=== PATIENT | female | born 1980 | race Caucasian/White ===

== ENCOUNTER 2018-06-06 04:48 | Day surgery (SDC) | payer BC ==
[2018-05-31 14:34] VITALS: BMI 25.5
[2018-06-06] MEDS ORDERED: BUPIVACAINE HCL/PF 0.5% (5MG/ML) 10 ML VIAL ONE (08:16)
[2018-06-06] MEDS ORDERED: MIDAZOLAM HCL 2 MG/2 ML SINGLE DOSE VIAL ONE ×2 (08:18)
[2018-06-06] MEDS ORDERED: oxyCODONE HCL 5 MG TABLET PO PRN ×2 (08:30)
[2018-06-06] MEDS ORDERED: LACTATED RINGERS SOLUTION 1,000 ML IV SCH (08:30)
[2018-06-06] MEDS ORDERED: ONDANSETRON 4 MG/2 ML VIAL IVPUSH PRN (08:30)
--- NOTE | 2018-06-06 08:52 | HP ---
[facility] - Chief Complaint Chief Complaint: left elbow pain History of Present Illness: left elbow lateral epicondylitis History Source: Patient Limitations to Obtaining History: No Limitations - Past Medical History Allergies/Adverse Reactions: Allergies Allergy/AdvReac Type Severity Reaction Status Date / Time No Known Drug Allergies Allergy Verified 06/06/18 08:20 ...LMP: 05/22/18 - Current Medications Current Medications: Home Medications Medication Instructions Recorded Aripiprazole [Abilify -] 2 mg PO DAILY 05/31/18 Bupropion HCl [Wellbutrin Xl -] 150 mg PO DAILY 05/31/18 Ibuprofen 600 mg PO PRN 05/31/18 Multivitamin [One-Daily 1 each PO DAILY 05/31/18 Multi-Vitamin] Venlafaxine HCl ER [Effexor Xr -] 187.5 mg PO DAILY 05/31/18 [facility]ellite Physical Exam - Physical Examination Vital Signs: Vital Signs Period Temp Pulse Resp BP Sys/Crow Pulse Ox Last 24 Hr 98.0 F 84 20 103/63 98 General Appearance: Well Nourished ENT: Clear Lung: Clear to auscultation Heart: Regular rate & rhythm Breasts: Soft Abdomen: Soft Extremities: No edema [facility]ellite Impression/Plan - Impression/Plan Impression: left elbow lateral epicondylitis, tear of extensor tendon/ECRB Operative Procedure: left elbow lateral epicondylectomy, repair of ECRB tendon Date to be Performed: 06/06/18
[2018-06-06] MEDS ORDERED: ceFAZolin SODIUM 1 GM VIAL ONE (09:18)
[2018-06-06] MEDS ORDERED: PROPOFOL 20 ML ONE (09:18)
[2018-06-06] MEDS ORDERED: ceFAZolin SODIUM 1 GM VIAL IVPB ONE (09:31)
[2018-06-06] MEDS ORDERED: DEXAMETHASONE SOD PHOSPHATE 4 MG/1 ML VIAL ONE (09:45)
--- NOTE | 2018-06-06 10:37 | OP ---
Operative Note - Note: Operative Date: 06/06/18 Pre-Operative Diagnosis: left elbow lateral epicondylitis, torn ECRB Operation: left elbow lateral epicondylectomy, repair of ECRB tendon Post-Operative Diagnosis: Same as Pre-op Surgeon: Hilario Antony Senior Merchandiser: López Chambers Anesthesiologist/PIT WORKER POWER SHOVEL: Blanac Benoit Anesthesia: General, Local Specimens Removed: lateral epicondyle Estimated Blood Loss (mls): 0 Drains, Volume Out (mls): 0 Blood Volume Replaced (mls): 0 Fluid Volume Replaced (mls): 700 Operative Report Dictated: Yes
[2018-06-06 12:00] VITALS: TEMP 98
[2018-06-06 12:29] VITALS: PULSE 88
[2018-06-06 12:39] VITALS: BP 111/62
--- NOTE | 2018-06-06 13:47 | SPEC ---
DATE OF OPERATION: 06/06/2018 PREOPERATIVE DIAGNOSIS: Left elbow lateral epicondylitis and torn extensor carpi radialis brevis muscle tendon. POSTOPERATIVE DIAGNOSIS: Left elbow lateral epicondylitis and torn extensor carpi radialis brevis muscle tendon. PROCEDURE: Left elbow lateral epicondylectomy and repair of extensor carpi radialis brevis muscle tendon. SURGEON: Hilario Antony MD TELECOMMUNICATIONS ADMINISTRATOR: López Chambers MD ANESTHESIOLOGIST: Blanca Benoit MD ANESTHESIA: Left interscalene block with LMA anesthesia. DRAINS: None. COMPLICATIONS: None. SPECIMEN: Chronic inflammatory tissue, left elbow. BLOOD LOSS: None. BLOOD GIVEN: None. FLUID REPLACEMENT: PlasmaLyte, 700 mL. INDICATIONS: This patient is a 37-year-old female with a preoperative diagnosis of chronic left elbow lateral epicondylitis and torn ECRB tendon. After understanding the potential risks, complications, alternatives, and benefits of surgery versus nonsurgical treatment, the patient elected to undergo this procedure. DESCRIPTION OF PROCEDURE: The patient was brought into the operating room, peripheral IV placed, IV sedation given, a right intrascalene block performed, LMA anesthesia induced. Patient was given 1 gram of IV Ancef. A tourniquet applied to the arm. The upper extremity was prepped and draped in a sterile fashion, elevated and exsanguinated with an Esmarch bandage and tourniquet inflated to 250 mg of mercury. The entire case was done under 3.8 loupe magnification. A No. 15 scalpel blade was utilized to cut into the skin in a curvilinear fashion over the lateral epicondyle. Subcutaneous hemostasis was achieved with the bipolar cautery. Metzenbaum scissors were used to cut through the superficial fascia, exposing the lateral epicondyle, the origin of the ECRB. Under direct visualization three longitudinal slits were made within the periosteum of the lateral epicondyle as well as along the fibers of the ECRB with a No. 15 scalpel blade. First starting in the most anterior slit, using a combination of a fresh No. 15 scalpel blade and a rongeur, I was able to identify and removed chronic inflammatory degenerating tissue. This slightly grayish yellowish tissue was passed off the field with specimen, soft tissue lateral epicondyle right elbow. Next a curet was used to scrape the tendon in the area of the abnormalities as well as mildly decorticate the lateral epicondyle. The area was copiously irrigated and washed out, inspected. All abnormal tissue was seen to be removed from this area and therefore a 1.1 mm drill bit was used to drill multiple holes within the lateral epicondyle. The same sequence of events was carried out in the middle slit and the posterior most slit combining all the tissue specimen. Multiple drill holes were again drilled in the lateral epicondyle after mild decortication with a curet and rongeur. The area was copiously irrigated and washed out, additional inspection performed. I didnt see any other abnormal tissue and therefore closure was begun. A 2-0 Vicryl suture was used to close the longitudinal split in the ECRB tendon. No chung tear of the ECRB was identified. It was just a degenerative process. The area was copiously irrigated and washed out. The fascia was closed with 4-0 undyed Vicryl over the repair. The deep dermal layer was closed with 4-0 undyed Vicryl. Final skin approximation was done with subcuticular running 4-0 V-loc suture. The area was then washed and dried and covered with Steri-Strips, 4 x 4s, Webril and a posterior fiber glass splint was applied, the elbow in neutral and the wrist mobilized as well. This was wrapped in two Mckinley bandages. The tourniquet was taken down after a total tourniquet time of approximately 45 minutes. There were no complications during the case. The patient tolerated the procedure quite well and was brought to the ambulatory recovery room in stable condition. Betzaida [id number]
--- NOTE | 2018-06-07 15:41 | PATH ---
Surgical Pathology Report Patient Name: LAKIA FAIR Med. Rec. #: [id number] /Age/Gender: 1980 (Age: 37) / F Account: [id number] Location: [facility] SURGICAL Taken: 06/06/2018 Received: 06/06/2018 Reported: 06/07/2018 Physicians: Hilario Antony M.D. Specimen(s) Received LEFT ELBOW LATERAL EPICONDYLE Clinical History Left elbow epicondylitis Final Diagnosis ELBOW, LEFT, LATERAL EPICONDYLITIS, LEFT LATERAL EPICONDYLECTOMY AND REPAIR: FRAGMENTS OF CARTILAGE AND FIBROCONNECTIVE TISSUE WITH FOCAL MILD HISTIOCYTIC INFILTRATE, GRANULATION TISSUE, AND REACTIVE CHANGES. Electronically Signed Alie Lambert M.D. Gross Description Received in formalin labeled "left elbow lateral epicondylitis," is a 1.0 x 0.8 x 0.2 cm aggregate jefferson soft tissue fragments. The specimen is submitted in toto in one cassette. 06/06/201806/06/2018
== END 2018-06-06 12:45 | disposition home or self-care (01) ==
LOC: JASU-SURG 04:48
PROVIDERS: ATTEND Orthopaedic Surgery
PROC: 0PBG0ZZ Excision of Left Humeral Shaft, Open Approach (ICD-10-PCS; principal; 2018-06-06 09:00)
DX: M77.12 Lateral epicondylitis, left elbow (principal); S56.512A Strain of other extensor muscle, fascia and tendon at forearm level, left arm, initial encounter; X58.XXXA Exposure to other specified factors, initial encounter; Y93.9 Activity, unspecified; Y92.9 Unspecified place or not applicable; Y99.9 Unspecified external cause status
CPT/HCPCS: 84703; 88304-TC; 94760